=== PATIENT | female | born 1990 | race African-American/Black ===

== ENCOUNTER 2024-01-25 07:30 | Emergency (ER) | payer OTHER ==
[~2024-01-25] VITALS: Ht 152.4 cm; Wt 50.4 kg
[2024-01-25] MEDS ORDERED: ACET-907 PO (07:42)
[2024-01-25] MEDS ORDERED: IBUP-1022 PO (08:54)
[2024-01-25 10:20] VITALS: BP 96/58; TEMP 98.3; O2SAT 100
== END 2024-01-25 10:24 | disposition home or self-care (01) ==
LOC: M ED 07:30
DX: S90.32XA Contusion of left foot, initial encounter (principal); X58.XXXA Exposure to other specified factors, initial encounter; Y92.009 Unspecified place in unspecified non-institutional (private) residence as the place of occurrence of the external cause; Y93.89 Activity, other specified; Y99.9 Unspecified external cause status; Z79.1 Long term (current) use of non-steroidal anti-inflammatories (NSAID)

== ENCOUNTER → 2024-02-26 | Outpatient (CLI) | payer OTHER ==
[~2024-02-26] MED LIST: ACET-907 PO; IBUP-1022 PO
== END ==
LOC: M SOG 10:52
PROVIDERS: ATTEND Physician Assistant
DX: M79.672 Pain in left foot (principal)

== ENCOUNTER → 2024-03-18 | Outpatient (CLI) | payer OTHER | LOC: M SOG 11:31 | PROVIDERS: ATTEND Physician Assistant | DX: M79.672 Pain in left foot (principal) ==

== ENCOUNTER → 2024-04-15 | Outpatient (CLI) | payer OTHER | LOC: M SOG 07:50 | PROVIDERS: ATTEND Physician Assistant | DX: M79.672 Pain in left foot (principal) ==